=== PATIENT | male | born 1945 | race Caucasian/White ===

== ENCOUNTER 2019-06-11 07:06 | Day surgery (SDC) | payer MEDICARE, OTHER ==
[~2019-06-11 07:06] MED LIST: Buffered Lidocaine 1% SYRIN 1 ml INTRADERM ONE
[2019-06-11] MEDS ORDERED: Midazolam 5 mg/5 ml VIAL 1 mg/ml 5 ml VIAL (5 mg) ONE (08:37)
[2019-06-11] MEDS ORDERED: fentaNYL 100 mcg/2 ml 50 MCG/ML VIAL ONE (08:37)
[2019-06-11 09:55] VITALS: BP 152/84
[2019-06-11] MEDS ORDERED: Cyclopentolate 1% OPTH.SOL 2 ML BTL ONE (14:57)
[2019-06-11] MEDS ORDERED: Neomycin/Polymy/Dex OPTH.SUSP MAXITROL 0.1% 5 ML ONE (14:57)
[2019-06-11] MEDS ORDERED: Povidone Iodine 5% OPTH 30 ML BTL ONE (14:57)
[2019-06-11] MEDS ORDERED: Phenylephrine 2.5% OPHTH SOL 2 ml BTL ONE (14:57)
[2019-06-11] MEDS ORDERED: Lidocaine 2% w/ EPI 1:200,000 MPF 20 ML SDV VIAL ONE (14:57)
[2019-06-11] MEDS ORDERED: Lidocaine 1% MPF 5 ML VIAL ONE (14:57)
[2019-06-11] MEDS ORDERED: Proparacaine 0.5% OPHTH.SOL 15 ML BTL ONE (14:57)
[2019-06-11] MEDS ORDERED: Ketorolac 0.5% OPHTH (NF) 0.5 % 5 ML BTL ONE (14:57)
== END 2019-06-11 09:49 | disposition home or self-care (01) ==
LOC: OREAST 07:06
PROVIDERS: ATTEND Specialist
DX: H25.812 Combined forms of age-related cataract, left eye (principal); H43.813 Vitreous degeneration, bilateral; F17.210 Nicotine dependence, cigarettes, uncomplicated

== ENCOUNTER 2019-06-18 06:47 | Day surgery (SDC) | payer MEDICARE, OTHER ==
[2019-06-18] MEDS ORDERED: fentaNYL 100 mcg/2 ml 50 MCG/ML VIAL ONE (08:07)
[2019-06-18] MEDS ORDERED: Midazolam 2 mg/2 ml VIAL 1 mg/ml 2 ml VIAL (2 mg) ONE (08:07)
[2019-06-18 09:11] VITALS: BP 115/85
[2019-06-18] MEDS ORDERED: Phenylephrine 2.5% OPHTH SOL 2 ml BTL ONE (13:51)
[2019-06-18] MEDS ORDERED: Povidone Iodine 5% OPTH 30 ML BTL ONE (13:51)
[2019-06-18] MEDS ORDERED: Proparacaine 0.5% OPHTH.SOL 15 ML BTL ONE (13:51)
[2019-06-18] MEDS ORDERED: Cyclopentolate 1% OPTH.SOL 2 ML BTL ONE (13:51)
[2019-06-18] MEDS ORDERED: Ketorolac 0.5% OPHTH (NF) 0.5 % 5 ML BTL ONE (13:51)
[2019-06-18] MEDS ORDERED: Lidocaine 1% MPF 5 ML VIAL ONE (13:51)
[2019-06-18] MEDS ORDERED: Neomycin/Polymy/Dex OPTH.SUSP MAXITROL 0.1% 5 ML ONE (13:51)
[2019-06-18] MEDS ORDERED: Lidocaine 2% w/ EPI 1:200,000 MPF 20 ML SDV VIAL ONE (13:51)
== END 2019-06-18 09:22 | disposition home or self-care (01) ==
LOC: OREAST 06:47
PROVIDERS: ATTEND Specialist
DX: H25.811 Combined forms of age-related cataract, right eye (principal); H43.813 Vitreous degeneration, bilateral; F17.210 Nicotine dependence, cigarettes, uncomplicated; M10.9 Gout, unspecified; Z85.828 Personal history of other malignant neoplasm of skin

== ENCOUNTER 2023-05-07 08:00 | Observation (INO) ==
[~2023-05-07 08:00] MED LIST changes: +Dexamethasone IV 4 MG/ML VIAL 1 ml VIAL ONE; +Famotidine IV 10 MG/ML 2 ml VIAL (20 mg) IV ONE; +Lactated Ringers 1000 ml BAG 1,000 ML IV SCH; +Lidocaine 2% PF 5 ML VIAL ONE; +Ondansetron 4 mg VIAL 2 MG/ML 2 ml VIAL ONE; +Propofol 10 MG/ML 20 ML BTL ONE; +fentaNYL 100 mcg/2 ml 50 MCG/ML VIAL ONE
[2023-05-07] MEDS ORDERED: Famotidine IV 10 MG/ML 2 ml VIAL (20 mg) ONE (08:38)
[2023-05-07] MEDS ORDERED: Gentamicin ADULT 365 MG in NS 0.9% 100 ml BAG 100 ML IVPB ONE (09:00)
[2023-05-07] MEDS ORDERED: Ampicillin ADVAN 2 GM in NS 0.9% 100 ML 100 ML IVPB ONE (09:00)
[2023-05-07] MEDS ORDERED: Ondansetron 4 mg VIAL 2 MG/ML 2 ml VIAL IV PRN ×2 (09:24→10:01)
[2023-05-07 09:28] LABS: Rapid COVID-19 Molecular Undetected (Undetected)
[2023-05-07] MEDS ORDERED: Phenylephrine 40 mcg/mL 10mL (400mcg) SYRINGE ONE ×2 (09:56→10:30)
[2023-05-07] MEDS ORDERED: Naloxone 0.4 mg VIAL 0.4 mg/ml 1 ml VIAL IV PRN (10:01)
[2023-05-07] MEDS ORDERED: fentaNYL 100 mcg/2 ml 50 MCG/ML VIAL IV PRN (10:01)
[2023-05-07] MEDS ORDERED: fentaNYL 100 mcg/2 ml 50 MCG/ML VIAL ONE ×2 (10:17→11:05)
[2023-05-07] MEDS ORDERED: Phenylephrine IV 10 MG/ML 1 ml VIAL ONE (10:30)
[2023-05-07] MEDS ORDERED: Furosemide 20 mg/2 ml IV VIAL ONE (11:02)
[2023-05-07] MEDS: NS 0.9% 1000 ml BAG 1,000 ML IV SCH ×2 (14:41→22:51)
[2023-05-07] MEDS: Neomycin/Polym/Bacit TOP OINT 15 GM TOPICAL SCH ×3 (16:03→22:47)
[2023-05-07] MEDS: Magnesium Hydroxide LIQ 30 ML UDC PO SCH (22:29)
[2023-05-08 05:24] VITALS: BP 140/82
[2023-05-08] MEDS: NS 0.9% 1000 ml BAG 1,000 ML IV SCH (07:55)
[2023-05-08] MEDS: Magnesium Hydroxide LIQ 30 ML UDC PO SCH (08:50)
[2023-05-08] MEDS: Neomycin/Polym/Bacit TOP OINT 15 GM TOPICAL SCH (08:51)
== END 2023-05-08 10:31 | disposition home or self-care (01) ==
LOC: OR 08:00 → SSU 08:00
PROVIDERS: ADMIT Urology; ATTEND Urology